=== PATIENT | female | born 1940 | race Caucasian/White ===

== ENCOUNTER → 2023-09-30 07:35 | Outpatient (REF) | payer OTHER, SELFPAY | LOC: HWRAD 07:35 | PROVIDERS: ATTENDING PHYSICIAN Obstetrics & Gynecology Gynecologic Oncology; FAMILY PHYSICIAN Student in an Organized Health Care Education/Training Program | DX: R10.30 Lower abdominal pain, unspecified (principal) | CPT/HCPCS: 74177; Q9967 ==

== ENCOUNTER 2023-11-18 06:03 | Day surgery (SDC) | payer OTHER, SELFPAY ==
[2023-11-10 10:26] LABS: Hematocrit 42.1 % (37.0-47.0); Hemoglobin 14.5 g/dL (12.0-16.0); Mean Corp Hgb Conc. 34.4 g/dL (33.0-37.0); Mean Corpuscular Hgb 30.7 pg (27.0-31.0); Mean Corpuscular Volume 89.2 fL (81.0-99.0); Mean Platelet Volume 10.1 fL (7.4-10.4); Platelet Count 216 10^3/uL (130-400); Red Blood Cell Count 4.72 10^6/uL (4.20-5.40); Red Cell Dist. Width 13.1 % (11.5-14.5); White Blood Cell Count 6.5 10^3/uL (4.8-10.8)
[2023-11-10 10:40] LABS: INR 0.97; PT 12.7 Sec (11.4-14.6)
[2023-11-10 10:41] LABS: APTT 27.7 Sec (23.4-35.0)
[2023-11-10 10:59] LABS: Blood Urea Nitrogen 15 mg/dl (7-17); Calcium 10.2 mg/dl (8.4-10.2); Carbon Dioxide 28 mmol/L (22-30); Chloride 104 mmol/L (98-107); Glucose 102 mg/dl (70-99); Potassium 4.3 mmol/L (3.5-5.1); Sodium 139 mmol/L (135-145); eGFR > 60.00
[2023-11-10 12:18] VITALS: BMI 24.7
[2023-11-18] VITALS (11 sets, daily range): BP systolic 119–143; BP diastolic 59–71; BMI 24.7
[2023-11-18] MEDS: NORMOSOL-R 1000 IV (06:34)
[2023-11-18] MEDS: DILAUDID 0.25 MG IV ×2 (08:50→09:09)
[2023-11-18] MEDS: Pyridium 200 MG PO (09:11)
== END 2023-11-18 10:30 | disposition home or self-care (01) ==
LOC: SDS 06:03
PROVIDERS: ATTENDING PHYSICIAN Specialist; FAMILY PHYSICIAN Student in an Organized Health Care Education/Training Program
DX: N20.0 Calculus of kidney (principal)
CPT/HCPCS: 52356; 36415; 74018; 76000; 80048; 85027; 85610; 85730; 93005; C1894; C2617

== ENCOUNTER → 2024-09-21 11:13 | Outpatient (REF) | payer OTHER, SELFPAY | LOC: HWRAD 11:13 | PROVIDERS: ATTENDING PHYSICIAN Physician Assistant; FAMILY PHYSICIAN Student in an Organized Health Care Education/Training Program; REFERRING PHYSICIAN Internal Medicine Rheumatology | DX: M81.0 Age-related osteoporosis without current pathological fracture (principal) | CPT/HCPCS: 77080 ==